=== PATIENT | female | born 1965 | race Caucasian/White ===

== ENCOUNTER 2016-08-24 10:43 | Observation (INO) | payer MEDICAID ==
[~2016-08-24 10:43] MED LIST: ADDERALL 30 MG30 M2 PO; CLONIDINE HCL0.1 M2 PO; CYMBALTA60 M1 PO; FETZIMA80 M1 PO; KEPPRA500 M3 PO; NORVASC5 M2 PO; ZOFRAN4 MG PO
[2016-08-24 11:33] LABS: BASO % 0.2 % (0-2); EOS % 3.5 % (0-7); EOSINOPHIL ABSOLUTE COUNT 0.2 tho/cmm (0.0-0.7); HGB-HEMOGLOBIN 11.9 gm/dl (12.0-15.5); IMMATURE GRANULOCYTES ABSOLUTE 0.01 tho/cmm (0-0.03); IMMATURE GRANULOCYTES PERCENT 0.2 % (0-0.3); LYMPH % 22.4 % (20-45); LYMPH ABSOLUTE COUNT 1.3 tho/cmm (0.8-4.5); MCH (MEAN CORPUSCULAR HGB) 31.1 pg (28.0-32.0); MCV (MEAN CELL VOLUME) 91.4 fl (82.0-96.0); MEAN PLATELET VOLUME 8.7 cmc (9.4-12.4); MONOCYTE ABSOLUTE COUNT 0.5 tho/cmm (0.0-1.2); NEUTROPHIL ABSOLUTE COUNT 3.8 tho/cmm (1.6-8.0); NEUTROPHIL-AUTOMATED 3.8 tho/cmm (1.6-8.0); NEUTROPHILS % 65.7 % (40-80); PLATELET COUNT 191 tho/cmm (150-450); RED BLOOD COUNT 3.83 mil/cmm (4.00-5.20); RED CELL DISTRIBUTION WIDTH 13.2 % (12.4-16.4); WHITE BLOOD COUNT 5.8 tho/cmm (4.0-10.0)
[2016-08-24] MEDS ORDERED: ADDERALL 10 MG10 M2 PO (11:43)
[2016-08-24] MEDS ORDERED: FLUOXETINE HCL40 M1 PO (11:43)
[2016-08-24] MEDS ORDERED: NEURONTIN600 M1 PO (11:44)
[2016-08-24] MEDS ORDERED: FLONASE ALLERG9.9 ML (11:44)
[2016-08-24] MEDS ORDERED: LAMICTAL100 M2 PO (11:44)
[2016-08-24] MEDS ORDERED: LAMOTRIGINE25 M3 PO (11:45)
[2016-08-24] MEDS ORDERED: CLARITIN10 M6 PO (11:46)
[2016-08-24] MEDS ORDERED: MAPAP500 M3 PO (11:46)
[2016-08-24] MEDS ORDERED: MOBIC7.5 M2 PO (11:46)
[2016-08-24] MEDS ORDERED: TRAZODONE HCL50 M1 PO (11:47)
[2016-08-24] MEDS ORDERED: VIRTUSSIN AC L118 ML PO (11:47)
[2016-08-24] MEDS ORDERED: IBUPROFEN800 M1 PO (11:48)
[2016-08-24 11:50] LABS: ALBUMIN 3.3 g/dl (3.5-5.0); ALKALINE PHOSPHATASE 58 U/L (33-138); ALT/SGPT 37 U/L (12-78); ANION GAP 11 mmol/L (0-20); AST/SGOT 43 U/L (10-40); BILIRUBIN,TOTAL 0.7 mg/dl (0-1.5); BLOOD UREA NITROGEN 8 mg/dl (6-24); CALCIUM 8.2 mg/dl (8.5-10.5); CARBON DIOXIDE-VENOUS 26 mmol/L (22-32); CHLORIDE 109 mmol/l (96-110); CREATININE 0.76 mg/dl (0.50-1.10); GLUCOSE 93 mg/dL (70-110); SODIUM 142 mmol/L (135-145); eGFR VALUE FOR BLACK >90 mL/Min
[2016-08-24 11:55] LABS: TSH-THYROID STIMULATING HORM. 0.94 uIU/ml (0.40-3.80)
[2016-08-24 12:05] LABS: URINE BILIRUBIN NEGATIVE (NEG); URINE BLOOD NEGATIVE (NEG); URINE GLUCOSE (UA) NEGATIVE (NEG); URINE KETONE NEGATIVE (NEG); URINE LEUKOCYTE ESTERASE POSITIVE (NEG); URINE NITRITE NEGATIVE (NEG); URINE PROTEIN NEGATIVE (NEG)
[2016-08-24 12:07] LABS: URINE APPEARANCE HAZY; URINE COLOR YELLOW
[2016-08-24 12:15] LABS: URINE BACTERIA 1+; URINE RBC 0-1 /[HPF] (0-5)
[2016-08-24] MEDS ORDERED: VYVANSE70 M1 PO (13:02)
[2016-08-24] MEDS ORDERED: BYSTOLIC5 M1 PO (13:04)
[2016-08-24] MEDS ORDERED: BYSTOLIC2.5 M1 PO (13:04)
[2016-08-25] MEDS ORDERED: OMEPRAZOLE40 M2 PO (12:15)
[2016-08-26] MEDS ORDERED: IMITREX50 M2 PO (12:24)
== END 2016-08-26 16:20 ==
LOC: EDMED 10:43 → EMR2 15:45 → CAR1 17:25
PROVIDERS: Emergency Medicine; ADMIT Internal Medicine
DX: R07.9 Chest pain, unspecified (principal); G43.909 Migraine, unspecified, not intractable, without status migrainosus; I10 Essential (primary) hypertension; I25.10 Atherosclerotic heart disease of native coronary artery without angina pectoris; M79.7 Fibromyalgia; G47.00 Insomnia, unspecified; F32.9 Major depressive disorder, single episode, unspecified; G40.909 Epilepsy, unspecified, not intractable, without status epilepticus; Z82.49 Family history of ischemic heart disease and other diseases of the circulatory system; Z79.899 Other long term (current) drug therapy; Z90.49 Acquired absence of other specified parts of digestive tract; Z98.890 Other specified postprocedural states
CPT/HCPCS: A9500; C8929; G0378; J0696; J2270; J7030; Q9967